=== PATIENT | male | born 1950 | race Caucasian/White ===

== ENCOUNTER → 2018-04-09 | Outpatient (CLI) | payer OTHER ==
[~2018-04-09] VITALS: Ht 167.6 cm; Wt 65.8 kg
[~2018-04-09] MED LIST: SIMVASTATIN40 MG PO
== END ==
LOC: GI 08:20
DX: Z12.11 Encounter for screening for malignant neoplasm of colon (principal); Z80.0 Family history of malignant neoplasm of digestive organs; K64.8 Other hemorrhoids; E78.00 Pure hypercholesterolemia, unspecified; Z98.890 Other specified postprocedural states; Z79.899 Other long term (current) drug therapy
CPT/HCPCS: G0105; 62110; 62900

== ENCOUNTER 2020-04-29 20:50 | Emergency (ER) | payer OTHER ==
[~2020-04-29] VITALS: Ht 165.1 cm; Wt 59.9 kg
[2020-04-29 20:53] VITALS: BP 154/76
[2020-04-29] MEDS ORDERED: MOBIC7.5 MG PO (21:36)
[2020-04-29] MEDS ORDERED: NORFLEX100 MG PO (21:36)
== END 2020-04-29 21:47 | disposition home or self-care (01) ==
LOC: ER 20:50
DX: S76.912A Strain of unspecified muscles, fascia and tendons at thigh level, left thigh, initial encounter (principal); S96.912A Strain of unspecified muscle and tendon at ankle and foot level, left foot, initial encounter; M54.6 Pain in thoracic spine; X50.0XXA Overexertion from strenuous movement or load, initial encounter; Y93.89 Activity, other specified; Y92.098 Other place in other non-institutional residence as the place of occurrence of the external cause; Y99.8 Other external cause status